=== PATIENT | male | born 1935 | race Caucasian/White ===

== ENCOUNTER 2022-12-29 17:06 | Emergency (ER) | payer MEDICARE, OTHER, SELFPAY ==
[2022-12-29 17:15] VITALS: BP 129/70; PULSE 78; RESP 24; TEMP 38.4; O2SAT 97; BMI 25.8
[2022-12-29 17:57] LABS: Lactate* 1.5 mmol/L (0.5-1.9)
[2022-12-29 17:59] LABS: Basophils Absolute Auto 0.02 K/uL (0.00-0.30); Basophils Percent Auto 0.4 % (0.0-3.0); Eosinophils Absolute Auto 0.03 K/uL (0.00-0.50); Eosinophils Percent Auto 0.7 % (0.0-7.0); Hematocrit 41.5 % (37.0-53.0); Hemoglobin* 13.4 gm/dL (13.5-17.5); Immature Granulocytes Abs Auto 0.01 K/uL (0.00-0.30); Immature Granulocytes Pct Auto 0.2 %; Lymphocytes Percent Auto 13.7 % (20-44); Mean Corpuscular HGB Conc 32 gm/dL (32-36); Mean Corpuscular Hemoglobin 30 pg (26-34); Mean Corpuscular Volume 93 fL (80-100); Monocytes Percent Auto 18.7 % (0.0-11.0); Neutrophils Absolute Auto 3.05 K/uL (1.7-7.0); Neutrophils Percent Auto 66.3 % (42.0-72.0); Platelet Count* 180 K/uL (140-440); RDW Coefficient of Variation % 13.7 % (11.5-15.5); Red Blood Count 4.48 m/uL (4.30-5.90)
[2022-12-29 18:03] LABS: Slide Review Reflex No
--- NOTE | 2022-12-29 18:08 | ED_ITS ---
HPI - General Adult General Date Seen: 12/29/22 Chief complaint: Fever Stated complaint: Covid+, fever 104 Time Seen by Provider: 12/29/22 17:08 Source: patient Mode of arrival: ambulatory Limitations: no limitations History of Present Illness HPI narrative: Patient is a 87-year-old male with no pertinent medical problems presenting to the emergency department for weakness and a positive COVID test at home. Patient states he believes his grandkids had a COVID exposure in then he was with them. States starting last night he will have a mildly sore throat and was feeling weak. Denies any chest pain, shortness of breath, abdominal pain, nausea, vomiting, diarrhea, constipation, numbness. Noted a fever of 104. Has not taken any Tylenol or ibuprofen. 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 He took a home COVID test that was positive. Related Data Home Medications Medication Instructions Recorded Confirmed multivitamin 1 tab PO QDAY 12/09/21 12/29/22 zinc citrate 1 tab PO .every other day 09/16/22 12/29/22 Previous Rx's Medication Instructions Recorded fluorouracil 5 % topical cream 1 applic topical BID #40 grams 10/08/22 nirmatrelvir 300 mg (150 mg See Rx Instructions PO .COMPLEX 12/29/22 x2)-ritonavir 100 mg tablet,dose #30 ea pack (Paxlovid) Allergies Allergy/AdvReac Type Severity Reaction Status Date / Time No Known Allergies Allergy Verified 12/29/22 17:21 Review of Systems Status of ROS: Reports: 10 or more systems reviewed and unremarkable except as noted in History and below [facility] Medical History Decreased hearing ?H91.90 - Unspecified hearing loss, unspecified ear (ICD-10) Lumbar muscle pain ?M79.18 - Myalgia, other site (ICD-10) Hammer toe (11/19/08) ?M20.40 - Other hammer toe(s) (acquired), unspecified foot (ICD-10) Depression ?F32.A - Depression, unspecified (ICD-10) Colon polyp ?K63.5 - Polyp of colon (ICD-10) Anemia (2017) ?D64.9 - Anemia, unspecified (ICD-10) Surgical History History of vitrectomy (2019) ?Z98.890 - Other specified postprocedural states (ICD-10) History of ear surgery (2000) ?Z98.890 - Other specified postprocedural states (ICD-10) Family History (Updated 11/27/21 @ 10:35 by Fatoumata Moreland) Mother Breast cancer Father Heart disease Social History Narrative: Exercises 5 to 6 times per week- swims [employer] 5/week Non-smoker Social drinker- 2/week , 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 Moist mucous membranes. Neck: Symmetric, trachea midline, No thyromegaly. CVS: RRR, No murmurs or gallops. Peripheral pulses 2+ and equal in all extremities RESP: Unlabored respiratory effort. Clear to auscultation bilaterally. GI: Nontender/Nondistended, No rebound or guarding. MSK:Extremities w/o deformity, Normal Active ROM Skin: Warm, Dry. No rashes or lesions. Neuro: Normal Muscle tone, No focal neurological deficits. Psych: Awake, Alert, & Oriented x3. Appropriate mood and affect. Const: Vital Signs, click to edit/add: Vital Signs - 24 hr 12/29/22 17:15 Temperature 101.1 F H Pulse Rate [Pulse Oximeter] 78 Respiratory Rate 24 Blood Pressure [Le ft Upper Arm] 129/70 Pulse Oximetry 97 Oxygen Delivery Me thod Room Air Course Vital Signs Vital signs: Initial Vital Signs Temperature 101.1 F H 12/29/22 17:15 Temperature Source Temporal Artery Scan 12/29/22 17:15 Pulse Rate 78 12/29/22 17:15 Pulse Rhythm Regular 12/29/22 17:15 Pulse Strength 3+ Normal 12/29/22 17:15 Respiratory Rate 24 12/29/22 17:15 Blood Pressure 129/70 12/29/22 17:15 Blood Pressure Mean 89 12/29/22 17:15 Blood Pressure Position Sitting 12/29/22 17:15 Pulse Oximetry 97 12/29/22 17:15 Oxygen Delivery Method Room Air 12/29/22 17:15 Vital Signs Temperature 101.1 F H 12/29/22 17:15 Pulse Rate 78 12/29/22 17:15 Respiratory Rate 24 12/29/22 17:15 Blood Pressure 129/70 12/29/22 17:15 Pulse Oximetry 97 12/29/22 17:15 Oxygen Delivery Method Room Air 12/29/22 17:15 Temperature 101.1 F H 12/29/22 17:15 Pulse Rate 78 12/29/22 17:15 Respiratory Rate 24 12/29/22 17:15 Blood Pressure 129/70 12/29/22 17:15 Pulse Oximetry 97 12/29/22 17:15 Oxygen Delivery Method Room Air 12/29/22 17:15 Medical Decision Making MDM Narrative Medical decision making narrative: Patient is a 87-year-old male with no pertinent medical problems presenting for COVID symptoms. He had a positive COVID test at home. He states he had borderline kidney dysfunction previously so came to be evaluated before we get started on Paxil of it. It has some mild weakness but denies any chest pain or shortness of breath. He always looks to be doing well. Since his fever at home was 104. When checked temp orally here is 101.1 in when checked orally was 100. Due to the fever resolving on its own he did not get any antipyretics. He does meet SIRS criteria is septic workup was ordered. Lactic acid was within normal limits. Cbc and CMP showed no concerning abnormalities. Troponin was within normal limits. Brush be otherwise doing well at this time. I do not believe further workup is necessary. He will be discharged home with PACs elevated. He is agreeable to this plan Lab Data Labs: Lab Results 08/29/23 08/29/23 08/29/23 Range/Units 17:50 17:50 17:50 WBC 4.60 (4.50-11.00) K/uL RBC 4.48 (4.30-5.90) m/uL Hgb 13.4 L (13.5-17.5) gm/dL Hct 41.5 (37.0-53.0) % MCV 93 (80-100) fL MCH 30 (26-34) pg MCHC 32 (32-36) gm/dL RDW Coeff of Reginaldo 13.7 (11.5-15.5) % Plt Count 180 (140-440) K/uL Neut % (Auto) 66.3 (42.0-72.0) % Lymph % (Auto) 13.7 L (20-44) % Gaston % (Auto) 18.7 H (0.0-11.0) % Eos % (Auto) 0.7 (0.0-7.0) % Baso % (Auto) 0.4 (0.0-3.0) % Neut # (Auto) 3.05 (1.7-7.0) K/uL Lymph # (Auto) 0.60 L (0.90-2.90) K/uL Gaston # (Auto) 0.90 (0.00-0.90) K/UL Eos # (Auto) 0.03 (0.00-0.50) K/uL Baso # (Auto) 0.02 (0.00-0.30) K/uL Abs Immat Gran (auto) 0.01 (0.00-0.30) K/uL Imm/Tot Granulo (auto) 0.2 % Sodium 137 (135-149) mmol/L Potassium 4.4 (3.6-5.1) mmol/L Chloride 106 (96-114) mmol/L Carbon Dioxide 24 (20-32) mmol/L Anion Gap 7 (7-15) mEq/L BUN 23 (7-30) mg/dL Creatinine 1.3 (0.5-1.5) mg/dL Estimated Creat Clear 44.25 Estimated GFR 54 ml/min Glucose 89 (60-115) mg/dL Lactate 1.5 (0.5-1.9) mmol/L Calcium 8.9 (8.4-10.6) mg/dL Magnesium 1.9 Cancelled (1.5-2.6) mg/dL Total Bilirubin 0.3 (0.1-1.5) mg/dL AST 43 H (12-35) U/L ALT 29 (4-50) U/L Alkaline Phosphatase 67 (40-150) U/L Troponin I 0.02 Cancelled (0.01-0.04) ng/mL Total Protein 7.0 (6.0-8.3) g/dL Albumin 4.0 (3.3-5.0) g/dL Discharge Plan Discharge Clinical Impression: COVID-19 Patient Disposition: Home, Self-Care Condition: Stable Instructions: COVID-19 (Coronavirus Disease 2019) (ED) Additional Instructions: Take the Paxil of it as directed. Return for new or worsened symptoms. Follow up with the primary care provider. Prescriptions: New Paxlovid 300 mg (150 mg x 2)-100 mg tablets,dose pack See Rx Instructions .ROUTE .COMPLEX Qty: 30 0RF Rx Instructions: take TWO 150 mg tablets of nirmatrelvir with ONE 100 mg tablet of ritonavir twice daily for 5 days No Action zinc citrate 1 tab PO .every other day multivitamin Tablet 1 tab PO QDAY fluorouracil 5 % cream 1 applic topical BID Qty: 40 0RF Rx Instructions: Apply topically to affected area on scalp/forehead and face one day every week. Follow Up/Referrals: Frandy Sarah MD [Primary Care Provider] - Stand Alone Forms: [employer] Info Instructions
[2022-12-29 18:13] LABS: Chloride* 106 mmol/L (96-114); Potassium* 4.4 mmol/L (3.6-5.1); Sodium* 137 mmol/L (135-149)
[2022-12-29 18:16] LABS: Alanine Aminotransferase* 29 U/L (4-50); Alkaline Phosphatase* 67 U/L (40-150); Anion Gap 7 mEq/L (7-15); Aspartate Amino Transferase* 43 U/L (12-35); Bilirubin Total* 0.3 mg/dL (0.1-1.5); Blood Urea Nitrogen* 23 mg/dL (7-30); Carbon Dioxide* 24 mmol/L (20-32); Creatinine* 1.3 mg/dL (0.5-1.5); Est. Creatinine Clearance* 44.25; Estimated Glomerular Filt Rate 54 ml/min; Glucose* 89 mg/dL (60-115)
[2022-12-29 18:17] LABS: Calcium* 8.9 mg/dL (8.4-10.6); Magnesium* 1.9 mg/dL (1.5-2.6)
[2022-12-29 18:28] LABS: Troponin I* 0.02 ng/mL (0.01-0.04)
== END 2022-12-29 18:53 | disposition home or self-care (01) ==
PROVIDERS: Emergency Provider Student in an Organized Health Care Education/Training Program; PCP Family Medicine
DX: U07.1 COVID-19 (principal)
CPT/HCPCS: 36415; 80053; 83605; 83735; 84484; 85025; 99283

== ENCOUNTER 2024-06-05 11:00 | Outpatient (CLI) | payer MEDICARE, OTHER, SELFPAY | END 2024-06-05 11:01 | disposition home or self-care (01) | LOC: NFLDREF 11:02 | PROVIDERS: PCP Family Medicine; Visit Provider Family Medicine | DX: Z01.818 Encounter for other preprocedural examination (principal) | CPT/HCPCS: 80048 ==